=== PATIENT | male | born 1985 | race Caucasian/White ===

== ENCOUNTER 2024-01-02 16:49 | Emergency (ER) | payer OTHER ==
[~2024-01-02] VITALS: Ht 180.3 cm; Wt 89.4 kg
[2024-01-02 16:54] VITALS: BP 114/73; PULSE 76; RESP 18; TEMP 98.6; O2SAT 99
--- NOTE | 2024-01-02 17:13 | NUR ---
38 Y/O MALE PT. C/O RIGHT FOOT WOUND AND DIABETIC ULCER. DENIES FEVER OR CHILLS. PLAN OF CARE ONGOING.
[2024-01-02] MEDS ORDERED: SULF-59 PO (17:40)
[2024-01-02] MEDS ORDERED: CEPH-588 PO (17:40)
[2024-01-02] MEDS ORDERED: IBUP-2213 PO (17:40)
[2024-01-02] MEDS ORDERED: cefTRIAXone 1,000 MG VIAL ONE (18:27)
[2024-01-02] MEDS ORDERED: BACITRACIN OINT 500 UNITS/GM PKT TP ONE (18:27)
[2024-01-02] MEDS ORDERED: LIDOCAINE MPF 1% 5 ML ONE (18:28)
[2024-01-02] MEDS: BACITRACIN OINT 500 UNITS/GM PKT TP STA (18:34)
[2024-01-02] MEDS: cefTRIAXone 1,000 MG in LIDOCAINE MPF 1% 2.1 ML IM ONE (18:35)
[2024-01-02] MEDS: IBUPROFEN 800 MG TAB PO ONE (19:10)
[2024-01-02 19:11] VITALS: BP 112/72; PULSE 77; RESP 16; TEMP 98.1; O2SAT 99
--- NOTE | 2024-01-02 19:11 | NUR ---
Patient discharged with v/s stable. Written and verbal after care instructions given and explained. Patient alert, oriented and verbalized understanding of instructions. Ambulatory with steady gait. All questions addressed prior to discharge. ID band removed. Patient advised to follow up with PMD. Rx of KEFLEX,IBUPROFEN AND BACTRIM given. Opportunity to ask questions provided and answered.
== END 2024-01-02 19:11 | disposition home or self-care (01) ==
LOC: MED 16:49
DX: L03.115 Cellulitis of right lower limb (principal); E11.9 Type 2 diabetes mellitus without complications; I10 Essential (primary) hypertension; Z79.1 Long term (current) use of non-steroidal anti-inflammatories (NSAID); Z79.899 Other long term (current) drug therapy
CPT/HCPCS: 96372; 99284; J0696; J2001